=== PATIENT | male | born 1960 | race Caucasian/White ===

== ENCOUNTER 2017-05-29 08:44 | Inpatient (IN) | payer OTHER, MEDICARE ==
[2017-05-29] VITALS (14 sets, daily range): BP systolic 78–150; BP diastolic 46–79; PULSE 58–95; RESP 16–32; TEMP 97.5–98.2; O2SAT 95–100
[~2017-05-29] VITALS: Ht 182.9 cm; Wt 105.4 kg
[2017-05-29] MEDS ORDERED: DIPHTH/TETANUS/ACEL PERTUSSIS (BOOSTER) 0.5 ML VIAL/PFS IM ONE (08:54)
[2017-05-29] MEDS ORDERED: HYDROmorphone HCL PF 1 MG/ML VIAL ONE (08:56)
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
[2017-05-29 09:24] LABS: BASOPHIL % 0.2 % (0.0-2.0); EOSINOPHIL # 0.1 TH/MM3 (0-0.4); EOSINOPHIL % 1.7 % (0.0-4.0); HEMATOCRIT 36.3 % (39.0-51.0); HEMOGLOBIN 12.2 GM/DL (13.0-17.0); LYMPH % 32.8 % (9.0-44.0); LYMPHOCYTE # 2.9 TH/MM3 (1.0-4.8); MEAN CELL VOLUME 84.8 FL (80.0-100.0); MEAN CORPUSCULAR HEMOGLOBIN 28.6 PG (27.0-34.0); MEAN CORPUSCULAR HGB CONC 33.7 % (32.0-36.0); MEAN PLATELET VOLUME 10.1 FL (7.0-11.0); MONOCYTE # 0.9 TH/MM3 (0-0.9); NEUT % 55.3 % (16.0-70.0); PLATELET COUNT 219 TH/MM3 (150-450); RED BLOOD COUNT 4.28 MIL/MM3 (4.50-5.90); RED CELL DISTRIBUTION WIDTH 15.4 % (11.6-17.2)
[2017-05-29 09:35] LABS: INTERNATIONAL NORMALIZED RATIO 1.2 RATIO; PROTHROMBIN TIME - PATIENT 12.3 SEC (9.8-11.6)
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
[2017-05-29] MEDS ORDERED: IOHEXOL 350 MG/ML 10 ML VIAL (for RAD DIAG) IVCONTRAST ONE (09:42)
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
[2017-05-29] MEDS ORDERED: HYDROmorphone HCL PF 2 MG/ML VIAL IV PUSH ONE (09:45)
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
[2017-05-29] MEDS ORDERED: CHLORHEXIDINE GLUCONATE 2 % 1 PACK (2 CLOTHS) TOP PRN (11:15)
[2017-05-29] MEDS ORDERED: MAGNESIUM HYDROXIDE SUSP 30 ML CUP PO PRN (11:15)
[2017-05-29] MEDS ORDERED: MISCELLANEOUS NURSING INFORMATION XX SCH (11:15)
[2017-05-29] MEDS: DOCUSATE SODIUM 100 MG CAP PO SCH ×2 (11:15→21:00)
[2017-05-29] MEDS ORDERED: ONDANSETRON HCL 4 MG/2 ML VIAL IV PUSH PRN (11:15)
[2017-05-29] MEDS ORDERED: ENALAPRILAT 1.25 MG/ML VIAL IV PUSH PRN (11:15)
[2017-05-29 11:18] LABS: BICARBONATE 26.1 MEQ/L (21.0-32.0); CALCIUM 8.6 MG/DL (8.5-10.1); CREATININE 1.28 MG/DL (0.60-1.30)
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
[2017-05-29] MEDS ORDERED: HYDROmorphone HCL 4 MG TAB PO PRN (11:45)
[2017-05-29] MEDS: THIAMINE HCL 100 MG TAB PO SCH (11:45)
[2017-05-29] MEDS: FOLIC ACID 1 MG TAB PO SCH (11:45)
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
[2017-05-29] MEDS: oxyCODONE HCL 40 MG CONTROLLED RELEASE TAB PO SCH ×2 (12:00→21:00)
[2017-05-29] MEDS ORDERED: KETOROLAC TROMETHAMINE 30 MG/ML (IVP) VIAL IVP PRN (12:15)
[2017-05-29] MEDS: HYDROmorphone HCL 2 MG TAB PO PRN ×3 (12:54→20:49)
[2017-05-29] MEDS ORDERED: ENOXAPARIN SODIUM 30 MG/0.3 ML SYRINGE SQ SCH (13:00)
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
[2017-05-29] MEDS: LIDOCAINE HCL 5% PATCH T-DERMAL SCH (14:22)
[2017-05-29] MEDS ORDERED: DEXMEDETOMIDINE INJ 200 MCG in SODIUM CHLORIDE 0.9% INJ 50 ML IV PRN (14:30)
[2017-05-29] MEDS ORDERED: PROCHLORPERAZINE 25 MG SUPP RECTAL PRN (14:45)
[2017-05-29] MEDS ORDERED: DEXMEDETOMIDINE INJ 1,000 MCG in SODIUM CHLOR 0.9% 250 ML INJ 240 ML IV PRN (15:00)
[2017-05-29] MEDS ORDERED: SODIUM CHLOR 0.9% 1000 ML INJ 1,000 ML IV STA (15:39)
[2017-05-29] MEDS: SODIUM CHLOR 0.9% 1000 ML INJ 1,000 ML IV SCH (16:00)
[2017-05-29] MEDS: PANTOPRAZOLE SODIUM 40 MG VIAL IV PUSH SCH (17:33)
[2017-05-29] MEDS ORDERED: SODIUM CHLOR 0.9% 1000 ML INJ 1,000 ML IV SCH (17:45)
[2017-05-29 19:04] LABS: HEMATOCRIT 27.5 % (39.0-51.0); HEMOGLOBIN 9.3 GM/DL (13.0-17.0)
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
[2017-05-29] MEDS: GABAPENTIN 300 MG CAP PO SCH (20:00)
[2017-05-29] MEDS: KETOROLAC TROMETHAMINE 30 MG/ML (IVP) VIAL IVP SCH (20:27)
[2017-05-29] MEDS: ACETAMINOPHEN 325 MG TAB PO SCH (20:28)
[2017-05-29 22:07] LABS: HEMATOCRIT 25.1 % (39.0-51.0); HEMOGLOBIN 8.8 GM/DL (13.0-17.0)
[2017-05-29] MEDS ORDERED: SODIUM CHLOR 0.9% 250 ML INJ 250 ML IV ONE (23:15)
[2017-05-29] MEDS ORDERED: SODIUM CHLOR 0.9% 1000 ML INJ 1,000 ML IV ONE (23:15)
[2017-05-29] MEDS ORDERED: PHENYLEPHRINE HCL 10 MG/ML VIAL ONE ×2 (23:22→23:24)
[2017-05-29] MEDS ORDERED: TERBUTALINE INJ 1 MG/ML AMP SQ PRN (23:30)
[2017-05-29] MEDS ORDERED: PHENYLEPHRINE INJ 40 MG in DEXTROSE 5% IN WATE 500 ML INJ 496 ML IV PRN ×2 (23:30)
--- NOTE | 2017-05-29 23:33 | RADRPT ---
EXAM DATE/TIME: 05/29/2017 23:22 [facility] COMPARISON: CHEST SINGLE AP, May 29, 2017, 8:46. INDICATIONS : Shortness of breath MEDICAL HISTORY : None. SURGICAL HISTORY : None. ENCOUNTER: Initial ACUITY: 1 day PAIN SCORE: 7/10 LOCATION: Left chest FINDINGS: A single view of the chest demonstrates the lungs to be symmetrically aerated without evidence of mas s, infiltrate or effusion. The cardiomediastinal contours are unremarkable. Osseous structures are intact. There is overlap of the ribs without clear identification of her fractures. CONCLUSION: No acute disease. Javier Ray Jr., MD on May 29, 2017 at 23:30 Board Certified Radiologist. This report was verified electronically.
[2017-05-30] VITALS (14 sets, daily range): BP systolic 84–158; BP diastolic 50–69; PULSE 56–76; RESP 11–22; TEMP 97.6–98.7; O2SAT 92–100
[2017-05-30] MEDS: SODIUM CHLOR 0.9% 1000 ML INJ 1,000 ML IV SCH (01:45)
[2017-05-30] MEDS: ACETAMINOPHEN 325 MG TAB PO SCH ×4 (02:00→20:13)
[2017-05-30] MEDS: KETOROLAC TROMETHAMINE 30 MG/ML (IVP) VIAL IVP SCH ×4 (02:00→20:14)
[2017-05-30] MEDS ORDERED: IOHEXOL 350 MG/ML 10 ML VIAL (for RAD DIAG) IVCONTRAST ONE (02:04)
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
[2017-05-30] MEDS: HYDROmorphone HCL 2 MG TAB PO PRN ×6 (03:45→21:15)
[2017-05-30] MEDS ORDERED: CHLORHEXIDINE GLUCONATE 2 % 1 PACK (2 CLOTHS) TOP SCH (04:00)
[2017-05-30 04:32] LABS: AUTOMATED NEUTROPHIL # 6.6 TH/MM3 (1.8-7.7); BASOPHIL % 0.3 % (0.0-2.0); EOSINOPHIL # 0.2 TH/MM3 (0-0.4); EOSINOPHIL % 1.7 % (0.0-4.0); HEMATOCRIT 28.6 % (39.0-51.0); HEMOGLOBIN 9.5 GM/DL (13.0-17.0); LYMPH % 19.3 % (9.0-44.0); MEAN CELL VOLUME 85.9 FL (80.0-100.0); MEAN CORPUSCULAR HEMOGLOBIN 28.5 PG (27.0-34.0); MEAN CORPUSCULAR HGB CONC 33.2 % (32.0-36.0); MEAN PLATELET VOLUME 9.8 FL (7.0-11.0); MONO % 14.2 % (0.0-8.0); MONOCYTE # 1.5 TH/MM3 (0-0.9); NEUT % 64.5 % (16.0-70.0); PLATELET COUNT 160 TH/MM3 (150-450); RED BLOOD COUNT 3.33 MIL/MM3 (4.50-5.90); RED CELL DISTRIBUTION WIDTH 16.5 % (11.6-17.2); WHITE BLOOD COUNT 10.3 TH/MM3 (4.0-11.0)
[2017-05-30 04:46] LABS: BICARBONATE 23.9 MEQ/L (21.0-32.0); CALCIUM 7.3 MG/DL (8.5-10.1); CREATININE 1.52 MG/DL (0.60-1.30)
[2017-05-30 05:07] LABS: CALCIUM-PROTEIN CORRECTED 7.8 MG/DL (8.5-10.1); TOTAL PROTEIN 6.2 GM/DL (6.4-8.2)
[2017-05-30] MEDS: PANTOPRAZOLE SODIUM 40 MG VIAL IV PUSH SCH ×2 (06:00→17:03)
--- NOTE | 2017-05-30 06:06 | RADRPT ---
EXAM DATE/TIME: 05/30/2017 05:21 [place] COMPARISON: CHEST SINGLE AP, May 29, 2017, 23:22. INDICATIONS : Shortness of breath, left-sided chest pain MEDICAL HISTORY : Endocarditis SURGICAL HISTORY : None. ENCOUNTER: Subsequent ACUITY: 1 day PAIN SCORE: 10/10 LOCATION: Left chest FINDINGS: A single view of the chest demonstrates the lungs to be symmetrically aerated without evidence of mas s, infiltrate or effusion. Mild cardiomegaly. No pulmonary vascular engorgement. Osseous structures a re intact. CONCLUSION: Mild cardiomegaly. Javier Ray Jr., MD on May 30, 2017 at 6:04 Board Certified Radiologist. This report was verified electronically.
[2017-05-30] MEDS ORDERED: BISACODYL 10 MG SUPP RECTAL PRN ×2 (06:45→07:00)
[2017-05-30] MEDS: RESP: ALBUTEROL 2.5 MG/IPRATROPIUM 0.5 MG NEB (SCH) NEB ×4 (07:56→20:08)
[2017-05-30] MEDS ORDERED: CHLORHEXIDINE GLUCONATE 2 % 1 PACK (2 CLOTHS)(extra cloths) TOPICAL PRN (08:15)
[2017-05-30] MEDS ORDERED: LACTATED RINGER'S 1000 ML INJ 1,000 ML IV ONE (08:30)
[2017-05-30] MEDS: FOLIC ACID 1 MG TAB PO SCH (08:48)
[2017-05-30] MEDS: oxyCODONE HCL 40 MG CONTROLLED RELEASE TAB PO SCH ×2 (08:48→20:20)
[2017-05-30] MEDS: GABAPENTIN 300 MG CAP PO SCH ×3 (08:48→17:03)
[2017-05-30] MEDS: DOCUSATE SODIUM 50 MG/SENNA 8.6 MG TAB PO SCH ×2 (08:48→20:14)
[2017-05-30] MEDS: THIAMINE HCL 100 MG TAB PO SCH (08:48)
[2017-05-30] MEDS: LACTULOSE SYRUP 20 GM/30 ML CUP PO SCH (08:51)
[2017-05-30] MEDS: MUPIROCIN 2% OINT 1 APPLIC/GM SYR NASAL SCH ×2 (08:51→20:13)
[2017-05-30] MEDS: LIDOCAINE HCL 5% PATCH T-DERMAL SCH (08:52)
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
[2017-05-30] MEDS: HYDROmorphone HCL PF 2 MG/ML VIAL IV PUSH PRN (10:35)
[2017-05-30] MEDS: ENOXAPARIN SODIUM 30 MG/0.3 ML SYRINGE SQ SCH ×2 (10:50→21:15)
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
--- NOTE | 2017-05-30 19:07 | ECHRPT ---
Indication: Pericardial effussion CONCLUSIONS LV function is normal. Wall thickness is normal. Normal left ventricular size. No regional wall motion abnormalities are present. The left atrial size is moderately dilated. Aortic valve sclerosis is present. Mild aortic valve regurgitation. The pulmonary valve is not well visualized. The inferior vena cava is dilated. There is less than 50% respiratory change in dimension of the inferior vena cava (abnormal). There is no pericardial effusion. BP: 114 / 59 HR: 60 Rhythm: Sinus Technical Quality:Fair FINDINGS LEFT VENTRICLE The left ventricular systolic function is normal with an estimated ejection fraction in the range of 60-65%. Wall thickness is normal. Normal left ventricular size. No regional wall motion abnormalities are present. RIGHT VENTRICLE Normal right ventricular size and systolic function. LEFT ATRIUM The left atrial size is moderately dilated. RIGHT ATRIUM The right atrial size is normal. ATRIAL SEPTUM Normal atrial septal thickness without atrial level shunting by limited color doppler interrogation. AORTA The aortic root and proximal ascending aorta are normal in size on limited imaging. MITRAL VALVE Structurally normal mitral valve. No mitral valve stenosis or regurgitation. AORTIC VALVE Trileaflet aortic valve. Aortic valve sclerosis is present. Mild aortic valve regurgitation. TRICUSPID VALVE Structurally normal tricuspid valve. No tricuspid valve stenosis or regurgitation. PULMONARY VALVE The pulmonary valve is not well visualized. VESSELS The inferior vena cava is dilated. There is less than 50% respiratory change in dimension of the inferior vena cava (abnormal). PERICARDIUM There is no pericardial effusion. Umesh Gilmore MD (Electronically Signed) Final Date:30 May 2017 19:06
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
[2017-05-31] VITALS (10 sets, daily range): BP systolic 105–149; BP diastolic 52–65; PULSE 61–86; RESP 12–22; TEMP 97.8–98.2; O2SAT 93–97
[2017-05-31] MEDS: HYDROmorphone HCL 2 MG TAB PO PRN ×6 (01:49→22:35)
[2017-05-31] MEDS: KETOROLAC TROMETHAMINE 30 MG/ML (IVP) VIAL IVP SCH ×4 (01:49→20:00)
[2017-05-31] MEDS: ACETAMINOPHEN 325 MG TAB PO SCH ×4 (01:50→20:00)
[2017-05-31] MEDS: CHLORHEXIDINE GLUCONATE 2 % 1 PACK (2 CLOTHS)(taper/protocol) TOPICAL SCH (04:00)
[2017-05-31 04:48] LABS: BICARBONATE 23.3 MEQ/L (21.0-32.0); CREATININE 1.47 MG/DL (0.60-1.30)
[2017-05-31 05:00] LABS: CALCIUM-PROTEIN CORRECTED 7.5 MG/DL (8.5-10.1); TOTAL PROTEIN 6.1 GM/DL (6.4-8.2)
[2017-05-31] MEDS: PANTOPRAZOLE SODIUM 40 MG VIAL IV PUSH SCH ×2 (05:01→18:00)
[2017-05-31] MEDS: RESP: ALBUTEROL 2.5 MG/IPRATROPIUM 0.5 MG NEB (SCH) NEB ×4 (08:00→22:31)
[2017-05-31] MEDS: HYDROmorphone HCL PF 2 MG/ML VIAL IV PUSH PRN ×2 (08:30→13:20)
[2017-05-31] MEDS: oxyCODONE HCL 40 MG CONTROLLED RELEASE TAB PO SCH ×2 (09:00→20:17)
[2017-05-31] MEDS: MUPIROCIN 2% OINT 1 APPLIC/GM SYR NASAL SCH ×2 (09:00→20:17)
[2017-05-31] MEDS: DOCUSATE SODIUM 50 MG/SENNA 8.6 MG TAB PO SCH ×2 (09:00→20:17)
[2017-05-31] MEDS: LACTULOSE SYRUP 20 GM/30 ML CUP PO SCH (09:00)
[2017-05-31] MEDS: GABAPENTIN 300 MG CAP PO SCH ×3 (09:00→18:00)
[2017-05-31] MEDS: FOLIC ACID 1 MG TAB PO SCH (09:00)
[2017-05-31] MEDS: THIAMINE HCL 100 MG TAB PO SCH (09:00)
[2017-05-31] MEDS: LIDOCAINE HCL 5% PATCH T-DERMAL SCH (09:00)
[2017-05-31] MEDS: ENOXAPARIN SODIUM 30 MG/0.3 ML SYRINGE SQ SCH ×2 (09:26→22:33)
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
[2017-05-31 12:33] LABS: AUTOMATED NEUTROPHIL # 3.2 TH/MM3 (1.8-7.7); BASOPHIL % 0.4 % (0.0-2.0); EOSINOPHIL # 0.2 TH/MM3 (0-0.4); HEMATOCRIT 24.6 % (39.0-51.0); HEMOGLOBIN 8.2 GM/DL (13.0-17.0); LYMPH % 13.4 % (9.0-44.0); LYMPHOCYTE # 0.6 TH/MM3 (1.0-4.8); MEAN CELL VOLUME 86.5 FL (80.0-100.0); MEAN CORPUSCULAR HEMOGLOBIN 28.9 PG (27.0-34.0); MEAN CORPUSCULAR HGB CONC 33.4 % (32.0-36.0); MEAN PLATELET VOLUME 9.9 FL (7.0-11.0); MONO % 12.7 % (0.0-8.0); MONOCYTE # 0.6 TH/MM3 (0-0.9); NEUT % 69.5 % (16.0-70.0); PLATELET COUNT 97 TH/MM3 (150-450); RED BLOOD COUNT 2.84 MIL/MM3 (4.50-5.90); RED CELL DISTRIBUTION WIDTH 16.5 % (11.6-17.2); WHITE BLOOD COUNT 4.6 TH/MM3 (4.0-11.0)
[2017-05-31 13:21] LABS: OVALOCYTES 1+ (NORMAL)
[2017-06-01] VITALS (8 sets, daily range): BP systolic 91–148; BP diastolic 53–86; PULSE 79–107; RESP 18–20; TEMP 97.6–98.8; O2SAT 94–97
[2017-06-01] MEDS: KETOROLAC TROMETHAMINE 30 MG/ML (IVP) VIAL IVP SCH ×4 (03:17→21:11)
[2017-06-01] MEDS: ACETAMINOPHEN 325 MG TAB PO SCH ×4 (03:17→21:11)
[2017-06-01] MEDS: HYDROmorphone HCL 2 MG TAB PO PRN ×6 (03:18→21:13)
[2017-06-01] MEDS: CHLORHEXIDINE GLUCONATE 2 % 1 PACK (2 CLOTHS)(taper/protocol) TOPICAL SCH (04:00)
[2017-06-01] MEDS: PANTOPRAZOLE SODIUM 40 MG VIAL IV PUSH SCH ×2 (06:26→18:00)
[2017-06-01] MEDS: RESP: ALBUTEROL 2.5 MG/IPRATROPIUM 0.5 MG NEB (SCH) NEB ×4 (08:22→21:19)
[2017-06-01] MEDS: MUPIROCIN 2% OINT 1 APPLIC/GM SYR NASAL SCH (09:00)
[2017-06-01] MEDS: LACTULOSE SYRUP 20 GM/30 ML CUP PO SCH (09:44)
[2017-06-01] MEDS: DOCUSATE SODIUM 50 MG/SENNA 8.6 MG TAB PO SCH ×2 (09:46→21:11)
[2017-06-01] MEDS: FOLIC ACID 1 MG TAB PO SCH (09:46)
[2017-06-01] MEDS: GABAPENTIN 300 MG CAP PO SCH (09:46)
[2017-06-01] MEDS: THIAMINE HCL 100 MG TAB PO SCH (09:46)
[2017-06-01] MEDS: oxyCODONE HCL 40 MG CONTROLLED RELEASE TAB PO SCH ×2 (09:59→21:12)
[2017-06-01] MEDS: LIDOCAINE HCL 5% PATCH T-DERMAL SCH (10:09)
[2017-06-01] MEDS: ENOXAPARIN SODIUM 30 MG/0.3 ML SYRINGE SQ SCH ×2 (10:10→21:12)
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
[2017-06-01] MEDS: HYDROmorphone HCL PF 2 MG/ML VIAL IV PUSH PRN ×2 (12:27→16:13)
[2017-06-01] MEDS: PREGABALIN 75 MG CAP PO SCH ×2 (16:20→21:11)
[2017-06-02] VITALS (9 sets, daily range): BP systolic 96–136; BP diastolic 53–78; PULSE 71–108; RESP 17–20; TEMP 97.6–99; O2SAT 91–95
[2017-06-02] MEDS: ACETAMINOPHEN 325 MG TAB PO SCH ×4 (01:42→20:00)
[2017-06-02] MEDS: HYDROmorphone HCL 2 MG TAB PO PRN ×4 (01:43→13:21)
[2017-06-02] MEDS: PANTOPRAZOLE SODIUM 40 MG VIAL IV PUSH SCH ×2 (04:52→17:39)
[2017-06-02] MEDS: RESP: ALBUTEROL 2.5 MG/IPRATROPIUM 0.5 MG NEB (SCH) NEB ×6 (07:47→20:02)
[2017-06-02] MEDS: oxyCODONE HCL 40 MG CONTROLLED RELEASE TAB PO SCH ×2 (09:02→21:00)
[2017-06-02] MEDS: LACTULOSE SYRUP 20 GM/30 ML CUP PO SCH (09:08)
[2017-06-02] MEDS: ENOXAPARIN SODIUM 30 MG/0.3 ML SYRINGE SQ SCH ×2 (09:09→22:00)
[2017-06-02] MEDS: PREGABALIN 75 MG CAP PO SCH (09:09)
[2017-06-02] MEDS: DOCUSATE SODIUM 50 MG/SENNA 8.6 MG TAB PO SCH ×2 (09:10→21:00)
[2017-06-02] MEDS: LIDOCAINE HCL 5% PATCH T-DERMAL SCH (09:13)
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
[2017-06-02] MEDS ORDERED: ONDANSETRON HCL 4 MG/2 ML VIAL IV ONE (12:00)
[2017-06-02] MEDS ORDERED: PROPOFOL 200 MG/20 ML AMP IV ONE (12:00)
[2017-06-02] MEDS ORDERED: PHENYLEPH/NS 1000 MCG/10 ML SYR IV ONE (12:00)
[2017-06-02] MEDS ORDERED: SODIUM CHLORIDE 0.9% 20 ML VIAL IV ONE (12:00)
[2017-06-02] MEDS: ceFAZolin 2 GM PREMIX 50 ML IV SCH ×2 (12:00→19:47)
[2017-06-02] MEDS: HYDROmorphone HCL PF 2 MG/ML VIAL IV PUSH PRN (12:01)
[2017-06-02] MEDS: LORazepam 1 MG TAB PO PRN (12:04)
[2017-06-02 14:18] LABS: AUTOMATED NEUTROPHIL # 10.2 TH/MM3 (1.8-7.7); BASOPHIL % 0.2 % (0.0-2.0); EOSINOPHIL # 0.1 TH/MM3 (0-0.4); HEMATOCRIT 27.8 % (39.0-51.0); HEMOGLOBIN 9.3 GM/DL (13.0-17.0); LYMPH % 5.3 % (9.0-44.0); LYMPHOCYTE # 0.6 TH/MM3 (1.0-4.8); MEAN CELL VOLUME 86.3 FL (80.0-100.0); MEAN CORPUSCULAR HEMOGLOBIN 28.8 PG (27.0-34.0); MEAN CORPUSCULAR HGB CONC 33.3 % (32.0-36.0); MEAN PLATELET VOLUME 10.3 FL (7.0-11.0); MONO % 5.5 % (0.0-8.0); MONOCYTE # 0.6 TH/MM3 (0-0.9); PLATELET COUNT 220 TH/MM3 (150-450); RED BLOOD COUNT 3.22 MIL/MM3 (4.50-5.90); RED CELL DISTRIBUTION WIDTH 16.3 % (11.6-17.2); WHITE BLOOD COUNT 11.6 TH/MM3 (4.0-11.0)
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
--- NOTE | 2017-06-02 14:52 | RADRPT ---
EXAM DATE/TIME: 06/02/2017 14:15 [facility] COMPARISON: No previous studies available for comparison. INDICATIONS : Pain and swelling right wrist MEDICAL HISTORY : Endocarditis, right ulna fracture SURGICAL HISTORY : Hardware placement right ulna ENCOUNTER: Initial ACUITY: 4 - 6 days PAIN SCORE: 10/10 LOCATION: Right Wrist FINDINGS: There is previous internal fixation of a fracture of the ulna with heterotopic desiccation adjacent t o this. Fusion of the carpal bones is present. 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 There is no evidence of acute fracture. Bony mineralization is normal. CONCLUSION: 1. There is no evidence of acute fracture. Murali Jones MD on June 02, 2017 at 14:48 Board Certified Radiologist. This report was verified electronically.
[2017-06-02 15:01] LABS: OVALOCYTES 1+ (NORMAL)
[2017-06-02] MEDS ORDERED: KETAMINE HCL 500 MG/5 ML VIAL ONE (17:37)
[2017-06-02] MEDS ORDERED: LIDOCAINE HCL 2% 50 ML VIAL ONE (17:43)
[2017-06-02] MEDS ORDERED: NEOMYCIN/POLYMYXIN 1 ML G.U. IRRIGANT ONE (17:45)
[2017-06-02] MEDS ORDERED: DO NOT ADM ANY ANTICOAGULANT DRUGS PRN (18:40)
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
[2017-06-02] MEDS ORDERED: MIDAZOLAM HCL 2 MG/2 ML VIAL ONE ×2 (18:46)
[2017-06-02] MEDS ORDERED: *RESP: ALBUTEROL 2.5 MG/3 ML NEB (PRN) PERIprocedural Use ONLY NEB ONE (18:55)
[2017-06-02] MEDS ORDERED: FUROSEMIDE 20 MG/2 ML VIAL ONE (19:17)
[2017-06-02] MEDS ORDERED: FUROSEMIDE 20 MG/2 ML VIAL IV ONE (19:17)
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
[2017-06-02] MEDS: PREGABALIN 100 MG CAP PO SCH (21:00)
[2017-06-03] VITALS (8 sets, daily range): BP systolic 91–128; BP diastolic 53–62; PULSE 73–108; RESP 16–20; TEMP 97.9–100; O2SAT 94–96
[2017-06-03] MEDS: ACETAMINOPHEN 325 MG TAB PO SCH ×3 (02:00→14:29)
[2017-06-03 04:50] LABS: HEMOGLOBIN 8.4 GM/DL (13.0-17.0); MEAN CELL VOLUME 84.5 FL (80.0-100.0); MEAN CORPUSCULAR HEMOGLOBIN 28.5 PG (27.0-34.0); MEAN CORPUSCULAR HGB CONC 33.7 % (32.0-36.0); MEAN PLATELET VOLUME 10.3 FL (7.0-11.0); PLATELET COUNT 180 TH/MM3 (150-450); RED BLOOD COUNT 2.96 MIL/MM3 (4.50-5.90); RED CELL DISTRIBUTION WIDTH 16.3 % (11.6-17.2); WHITE BLOOD COUNT 10.4 TH/MM3 (4.0-11.0)
[2017-06-03] MEDS: ceFAZolin 2 GM PREMIX 50 ML IV SCH (05:06)
[2017-06-03] MEDS: PANTOPRAZOLE SODIUM 40 MG VIAL IV PUSH SCH ×2 (05:06→17:18)
[2017-06-03] MEDS: HYDROmorphone HCL 2 MG TAB PO PRN ×4 (05:14→17:15)
[2017-06-03 05:20] LABS: BICARBONATE 21.6 MEQ/L (21.0-32.0); CREATININE 1.66 MG/DL (0.60-1.30)
[2017-06-03] MEDS: HYDROmorphone HCL PF 2 MG/ML VIAL IV PUSH PRN ×3 (06:32→16:05)
--- NOTE | 2017-06-03 06:47 | RADRPT ---
EXAM DATE/TIME: 06/03/2017 05:43 [facility] COMPARISON: CHEST SINGLE AP, May 30, 2017, 5:21. INDICATIONS : Severe pain left chest and back, follow up post trauma MEDICAL HISTORY : rib fractures left side, endocarditis SURGICAL HISTORY : None. ENCOUNTER: Subsequent ACUITY: 4 - 6 days PAIN SCORE: 10/10 LOCATION: Left chest FINDINGS: The cardiac silhouette is enlarged in transverse diameter. Multiple left rib fractures are present. T here is no evidence of pneumothorax. There is new right upper lobe opacity which may reflect edema o r pneumonia. There is prominence of the central pulmonary vasculature with indistinct vascular margin s compatible with vascular congestion but no evidence of overt failure. CONCLUSION: 1. Cardiomegaly and findings of vascular congestion without overt failure. Right upper lobe edema wilmar sharmaine pneumonia 2. There is no evidence of pneumothorax. Murali Jones MD on June 03, 2017 at 6:44 Board Certified Radiologist. This report was verified electronically.
[2017-06-03 06:53] LABS: BANDS 7 % (0-6); LYMPHOCYTES 5 % (9-44); METAMYELOCYTES 1 % (0-1); MONOCYTES 7 % (0-8); NEUTROPHIL # MANUAL DIFF 9.2 TH/MM3 (1.8-7.7); POLYS (SEG NEUTROPHILS) 80 % (16-70)
[2017-06-03 06:54] LABS: OVALOCYTES 1+ (NORMAL)
[2017-06-03] MEDS: PREGABALIN 100 MG CAP PO SCH ×2 (08:46→21:21)
[2017-06-03] MEDS: DOCUSATE SODIUM 50 MG/SENNA 8.6 MG TAB PO SCH ×2 (08:46→21:21)
[2017-06-03] MEDS: oxyCODONE HCL 40 MG CONTROLLED RELEASE TAB PO SCH ×2 (08:47→21:21)
[2017-06-03] MEDS: LACTULOSE SYRUP 20 GM/30 ML CUP PO SCH (08:48)
[2017-06-03] MEDS: LIDOCAINE HCL 5% PATCH T-DERMAL SCH (08:49)
[2017-06-03] MEDS: ENOXAPARIN SODIUM 30 MG/0.3 ML SYRINGE SQ SCH ×2 (09:59→21:22)
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
[2017-06-03] MEDS ORDERED: Vancomycin Consult Pharmacy 1 EA OTHER SCH (12:15)
[2017-06-03] MEDS ORDERED: LACTATED RINGER'S 1000 ML INJ 1,000 ML IV ONE (12:15)
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
[2017-06-03] MEDS ORDERED: VANCOMYCIN INJ 1,000 MG in SODIUM CHLOR 0.9% 250 ML INJ 250 ML IV SCH (13:00)
[2017-06-03] MEDS: PIPERACIL-TAZO 3.375 GM PREMIX 50 ML IV SCH ×2 (14:31→21:22)
[2017-06-03] MEDS ORDERED: VANCOMYCIN INJ 1,750 MG in SODIUM CHLORID 0.9% 500 ML INJ 500 ML IV ONE (15:00)
[2017-06-03] MEDS: LACTATED RINGER'S 1000 ML INJ 1,000 ML IV SCH ×2 (16:08→21:21)
[2017-06-04] VITALS: BP 135/81; PULSE 100; RESP 20; TEMP 97; O2SAT 95
[2017-06-04] MEDS: HYDROmorphone HCL 2 MG TAB PO PRN ×4 (02:27→22:04)
[2017-06-04] MEDS: LACTATED RINGER'S 1000 ML INJ 1,000 ML IV SCH ×2 (04:15→12:51)
[2017-06-04 05:05] VITALS: BP 125/64; PULSE 85; RESP 20; O2SAT 96
[2017-06-04] MEDS: PANTOPRAZOLE SODIUM 40 MG VIAL IV PUSH SCH ×2 (05:09→17:06)
[2017-06-04] MEDS: PIPERACIL-TAZO 3.375 GM PREMIX 50 ML IV SCH ×3 (05:10→22:04)
[2017-06-04 07:11] LABS: ALBUMIN 1.9 GM/DL (3.4-5.0); ALT (GPT) 26 U/L (12-78); AST (GOT) 66 U/L (15-37); BICARBONATE 22.2 MEQ/L (21.0-32.0); BLOOD UREA NITROGEN 29 MG/DL (7-18); CALCIUM 7.8 MG/DL (8.5-10.1); CHLORIDE 103 MEQ/L (98-107); CREATININE 1.22 MG/DL (0.60-1.30); GLOMERULAR FILTRATION RATE 61 ML/MIN (>89); GLUCOSE,RANDOM 89 MG/DL (74-106); SODIUM (NA) 132 MEQ/L (136-145)
[2017-06-04 07:14] LABS: ALKALINE PHOSPHATASE 106 U/L (45-117); RANDOM VANCOMYCIN 3.5 COMMENT; TOTAL BILIRUBIN ADULT 1.3 MG/DL (0.2-1.0)
[2017-06-04 07:16] LABS: AUTOMATED NEUTROPHIL # 8.1 TH/MM3 (1.8-7.7); BASOPHIL % 0.1 % (0.0-2.0); EOSINOPHIL % 0.4 % (0.0-4.0); HEMATOCRIT 24.3 % (39.0-51.0); HEMOGLOBIN 8.4 GM/DL (13.0-17.0); LYMPH % 7.9 % (9.0-44.0); LYMPHOCYTE # 0.8 TH/MM3 (1.0-4.8); MEAN CELL VOLUME 85.4 FL (80.0-100.0); MEAN CORPUSCULAR HEMOGLOBIN 29.5 PG (27.0-34.0); MEAN CORPUSCULAR HGB CONC 34.5 % (32.0-36.0); MEAN PLATELET VOLUME 10.2 FL (7.0-11.0); MONO % 10.1 % (0.0-8.0); NEUT % 81.5 % (16.0-70.0); PLATELET COUNT 209 TH/MM3 (150-450); RED BLOOD COUNT 2.84 MIL/MM3 (4.50-5.90); RED CELL DISTRIBUTION WIDTH 16.7 % (11.6-17.2); WHITE BLOOD COUNT 9.9 TH/MM3 (4.0-11.0)
[2017-06-04 08:00] VITALS: BP 123/65; PULSE 80; RESP 19; TEMP 99; O2SAT 94
[2017-06-04] MEDS: DOCUSATE SODIUM 50 MG/SENNA 8.6 MG TAB PO SCH ×2 (09:00→20:24)
[2017-06-04] MEDS: oxyCODONE HCL 40 MG CONTROLLED RELEASE TAB PO SCH ×2 (09:00→20:21)
[2017-06-04] MEDS: LACTULOSE SYRUP 20 GM/30 ML CUP PO SCH (09:00)
[2017-06-04] MEDS: LIDOCAINE HCL 5% PATCH T-DERMAL SCH (09:00)
[2017-06-04] MEDS: PREGABALIN 100 MG CAP PO SCH ×2 (09:00→20:20)
[2017-06-04 09:25] VITALS: O2SAT 96
[2017-06-04] MEDS: ENOXAPARIN SODIUM 30 MG/0.3 ML SYRINGE SQ SCH ×2 (10:00→20:22)
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
[2017-06-04] MEDS ORDERED: FUROSEMIDE 20 MG/2 ML VIAL IV PUSH ONE (11:45)
[2017-06-04] MEDS: VANCOMYCIN INJ 1,500 MG in SODIUM CHLORID 0.9% 500 ML INJ 500 ML IV SCH (13:17)
[2017-06-04 13:18] VITALS: BP 125/70; PULSE 81; RESP 18; TEMP 98.9; O2SAT 97
[2017-06-04 16:00] VITALS: BP 101/55; PULSE 80; RESP 18; TEMP 99.4; O2SAT 96
[2017-06-05] VITALS: BP 135/70; PULSE 54; RESP 20; TEMP 97; O2SAT 95
[2017-06-05] MEDS: VANCOMYCIN INJ 1,500 MG in SODIUM CHLORID 0.9% 500 ML INJ 500 ML IV SCH ×2 (01:46→13:23)
[2017-06-05] MEDS: HYDROmorphone HCL 2 MG TAB PO PRN ×8 (01:55→21:46)
[2017-06-05 04:00] VITALS: BP 131/66; PULSE 79; RESP 20; TEMP 97.6; O2SAT 95
[2017-06-05 04:27] LABS: AUTOMATED NEUTROPHIL # 6.7 TH/MM3 (1.8-7.7); BASOPHIL % 0.3 % (0.0-2.0); EOSINOPHIL # 0.2 TH/MM3 (0-0.4); EOSINOPHIL % 2.1 % (0.0-4.0); HEMATOCRIT 26.7 % (39.0-51.0); HEMOGLOBIN 8.9 GM/DL (13.0-17.0); LYMPH % 12.4 % (9.0-44.0); LYMPHOCYTE # 1.1 TH/MM3 (1.0-4.8); MEAN CELL VOLUME 83.8 FL (80.0-100.0); MEAN CORPUSCULAR HEMOGLOBIN 27.9 PG (27.0-34.0); MEAN CORPUSCULAR HGB CONC 33.3 % (32.0-36.0); MONOCYTE # 0.8 TH/MM3 (0-0.9); NEUT % 76.2 % (16.0-70.0); PLATELET COUNT 262 TH/MM3 (150-450); RED BLOOD COUNT 3.19 MIL/MM3 (4.50-5.90); RED CELL DISTRIBUTION WIDTH 16.4 % (11.6-17.2); WHITE BLOOD COUNT 8.8 TH/MM3 (4.0-11.0)
[2017-06-05 05:02] LABS: ALBUMIN 1.9 GM/DL (3.4-5.0); ALKALINE PHOSPHATASE 124 U/L (45-117); ALT (GPT) 27 U/L (12-78); AST (GOT) 55 U/L (15-37); BICARBONATE 28.6 MEQ/L (21.0-32.0); BLOOD UREA NITROGEN 24 MG/DL (7-18); CHLORIDE 99 MEQ/L (98-107); CREATININE 1.16 MG/DL (0.60-1.30); GLOMERULAR FILTRATION RATE 65 ML/MIN (>89); GLUCOSE,RANDOM 114 MG/DL (74-106); SODIUM (NA) 135 MEQ/L (136-145); TOTAL BILIRUBIN ADULT 1.3 MG/DL (0.2-1.0); TOTAL PROTEIN 6.2 GM/DL (6.4-8.2)
[2017-06-05] MEDS: LACTATED RINGER'S 1000 ML INJ 1,000 ML IV SCH (05:10)
[2017-06-05] MEDS: PIPERACIL-TAZO 3.375 GM PREMIX 50 ML IV SCH ×2 (05:11→15:58)
[2017-06-05] MEDS: PANTOPRAZOLE SODIUM 40 MG VIAL IV PUSH SCH (05:11)
--- NOTE | 2017-06-05 06:01 | RADRPT ---
EXAM DATE/TIME: 06/05/2017 04:57 [facility] COMPARISON: CHEST SINGLE AP, June 03, 2017, 5:43. INDICATIONS : Severe pain left chest and back, follow up post trauma MEDICAL HISTORY : rib fractures left side, endocarditis SURGICAL HISTORY : None. ENCOUNTER: Subsequent ACUITY: 4 - 6 days PAIN SCORE: 10/10 LOCATION: Left chest FINDINGS: The cardiac silhouette is enlarged in transverse diameter. There is prominence of the central pulmona ry vasculature with indistinct vascular margins compatible with vascular congestion but no evidence o f overt failure. There is no evidence of pneumothorax. CONCLUSION: 1. Cardiomegaly and findings of vascular congestion without overt failure. Murali Jones MD on June 05, 2017 at 5:57 Board Certified Radiologist. This report was verified electronically.
[2017-06-05 08:36] VITALS: BP 117/58; PULSE 75; RESP 20; TEMP 98.3; O2SAT 97
[2017-06-05] MEDS: LIDOCAINE HCL 5% PATCH T-DERMAL SCH (10:22)
[2017-06-05] MEDS: PREGABALIN 100 MG CAP PO SCH ×2 (10:24→21:44)
[2017-06-05] MEDS: LACTULOSE SYRUP 20 GM/30 ML CUP PO SCH (10:24)
[2017-06-05] MEDS: DOCUSATE SODIUM 50 MG/SENNA 8.6 MG TAB PO SCH ×2 (10:24→21:00)
[2017-06-05] MEDS: PANTOPRAZOLE SOD 40 MG DELAYED RELEASE TAB PO SCH ×2 (10:24→21:45)
[2017-06-05] MEDS: ENOXAPARIN SODIUM 30 MG/0.3 ML SYRINGE SQ SCH ×2 (10:24→21:45)
[2017-06-05] MEDS: oxyCODONE HCL 40 MG CONTROLLED RELEASE TAB PO SCH ×2 (10:25→21:45)
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
[2017-06-05 12:18] VITALS: BP 93/51; PULSE 71; RESP 20; TEMP 98.6; O2SAT 97
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
[2017-06-05 17:21] VITALS: O2SAT 97
[2017-06-05 20:30] VITALS: BP 147/70; PULSE 80; RESP 22; TEMP 98.8; O2SAT 100
[2017-06-06] VITALS (8 sets, daily range): BP systolic 92–141; BP diastolic 50–70; PULSE 74–88; RESP 18–20; TEMP 97.4–98.5; O2SAT 92–100
[2017-06-06] MEDS: HYDROmorphone HCL 2 MG TAB PO PRN ×7 (00:35→22:43)
[2017-06-06] MEDS: cefTRIAXone INJ 2,000 MG in SODIUM CHLORIDE 0.9% INJ 100 ML IV SCH ×2 (00:35→22:44)
[2017-06-06] MEDS ORDERED: PHARMACY ORDERED LAB ONE (00:45)
[2017-06-06] MEDS: LACTATED RINGER'S 1000 ML INJ 1,000 ML IV SCH ×2 (00:58→14:51)
[2017-06-06] MEDS: VANCOMYCIN INJ 1,500 MG in SODIUM CHLORID 0.9% 500 ML INJ 500 ML IV SCH ×2 (01:57→13:59)
[2017-06-06] MEDS: DOCUSATE SODIUM 50 MG/SENNA 8.6 MG TAB PO SCH ×2 (09:00→22:42)
[2017-06-06] MEDS: PREGABALIN 100 MG CAP PO SCH ×2 (10:21→22:43)
[2017-06-06] MEDS: LACTULOSE SYRUP 20 GM/30 ML CUP PO SCH (10:21)
[2017-06-06] MEDS: PANTOPRAZOLE SOD 40 MG DELAYED RELEASE TAB PO SCH ×2 (10:22→22:44)
[2017-06-06] MEDS: oxyCODONE HCL 40 MG CONTROLLED RELEASE TAB PO SCH ×2 (10:22→22:44)
[2017-06-06] MEDS: LIDOCAINE HCL 5% PATCH T-DERMAL SCH (10:23)
[2017-06-06] MEDS: ENOXAPARIN SODIUM 30 MG/0.3 ML SYRINGE SQ SCH ×2 (10:23→22:44)
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
[2017-06-06] MEDS: RESP: ALBUTEROL 2.5 MG/IPRATROPIUM 0.5 MG NEB (SCH) NEB ×2 (17:29→21:24)
[2017-06-07] VITALS (7 sets, daily range): BP systolic 97–131; BP diastolic 54–63; PULSE 68–82; RESP 18–20; TEMP 97.8–98.5; O2SAT 92–98
[2017-06-07] MEDS: VANCOMYCIN INJ 1,500 MG in SODIUM CHLORID 0.9% 500 ML INJ 500 ML IV SCH ×2 (01:00→13:00)
[2017-06-07] MEDS: RESP: ALBUTEROL 2.5 MG/IPRATROPIUM 0.5 MG NEB (SCH) NEB ×4 (03:07→20:47)
[2017-06-07] MEDS: HYDROmorphone HCL 2 MG TAB PO PRN ×7 (03:13→22:33)
[2017-06-07] MEDS: LACTATED RINGER'S 1000 ML INJ 1,000 ML IV SCH (07:31)
[2017-06-07] MEDS: LACTULOSE SYRUP 20 GM/30 ML CUP PO SCH (09:00)
[2017-06-07] MEDS: DOCUSATE SODIUM 50 MG/SENNA 8.6 MG TAB PO SCH ×2 (09:00→21:19)
[2017-06-07] MEDS: PANTOPRAZOLE SOD 40 MG DELAYED RELEASE TAB PO SCH ×2 (09:37→21:19)
[2017-06-07] MEDS: oxyCODONE HCL 40 MG CONTROLLED RELEASE TAB PO SCH ×2 (09:37→21:26)
[2017-06-07] MEDS: ENOXAPARIN SODIUM 30 MG/0.3 ML SYRINGE SQ SCH ×2 (09:38→21:19)
[2017-06-07] MEDS: PREGABALIN 100 MG CAP PO SCH ×2 (09:38→21:19)
[2017-06-07] MEDS: LIDOCAINE HCL 5% PATCH T-DERMAL SCH (09:38)
[2017-06-07] MEDS ORDERED: MORP1TAB25 PO (12:09)
[2017-06-07] MEDS ORDERED: OXYC30TA PO (12:09)
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
--- NOTE | 2017-06-07 15:11 | HHI.IDPN ---
Subjective Subjective Remarks co R forearm pain, clains it did not get any better no fever Antibiotics CFTX vancomycin Allergies: Coded Allergies: No Known Drug Allergies (Verified Allergy, Unknown, 05/29/17) Objective . Vital Signs Date Time Temp Pulse Resp B/P (MAP) Pulse Ox O2 Delivery O2 Flow Rate FiO2 06/07/17 13:28 06/07/17 09:25 95 Nasal Cannula 3.00 06/07/17 08:33 97.8 76 20 131/61 (84) 92 06/07/17 07:54 Nasal Cannula 4.00 21 Humidified 06/07/17 04:00 98.0 82 20 126/62 (83) 94 06/07/17 00:00 98.2 80 20 107/58 (74) 96 06/06/17 21:24 98.5 78 19 135/63 (87) 95 06/06/17 21:00 Nasal Cannula 4.00 Humidified 06/06/17 17:29 96 Nasal Cannula 3.00 06/06/17 16:09 97.4 76 18 125/62 (83) 96 Imaging Last Impressions Chest X-Ray 06/05/17 0600 Signed Impressions: Service Date/Time: Monday, June 05, 2017 04:57 - CONCLUSION: 1. Cardiomegaly and findings of vascular congestion without overt failure. Murali Jones MD Wrist X-Ray 06/02/17 0000 Signed Impressions: Service Date/Time: Friday, June 02, 2017 14:15 - CONCLUSION: 1. There is no evidence of acute fracture. Murali Jones MD Hand X-Ray 06/02/17 0000 Signed Impressions: Service Date/Time: Friday, June 02, 2017 14:10 - CONCLUSION: 1. There is no evidence of acute fracture. Murali Jones MD Abdomen/Pelvis CT 05/30/17 0000 Signed Impressions: Service Date/Time: May 01:51 - CONCLUSION: 1. No acute abnormality. 2. Splenomegaly. 3. Cardiomegaly. Javier Ray Jr., MD Thoracic Spine CT 05/29/17 0847 Signed Impressions: Service Date/Time: Monday, May 29, 2017 09:12 - CONCLUSION: 1. No acute compression fracture or subluxation of the thoracic spine. 2. Degenerative changes and scoliosis of the thoracic spine. 3. Acute fractures involving the posterior aspect of the left third, fourth, fifth, sixth, seventh, eighth, ninth and 10th ribs are noted. Garrett Tomas MD Maxillofacial CT 05/29/17846 Signed Impressions: Service Date/Time: Monday, May 29, 2017 09:06 - CONCLUSION: 1. Nondisplaced nasal bone fracture Murali Jones MD Head CT 05/29/17846 Signed Impressions: Service Date/Time: Monday, May 29, 2017 09:06 - CONCLUSION: 1. No evidence of acute intracranial pathology. No masses are identified. Murali Jones MD Chest CT 05/29/17846 Signed Impressions: Service Date/Time: Monday, May 29, 2017 09:12 - CONCLUSION: Mild compensated clinically. Trace pericardial effusion No pneumothorax. Old left rib fractures Negative for acute traumatic injury.. Mitchell Sanchez MD FACRADDENDUM: CT of the thoracic spine with thin sections shows acute rib fractures as well as old rib fractures on the left.. Mitchell Sanchez MD FACR Knee X-Ray 05/29/17 Signed Impressions: Service Date/Time: Monday, May 29, 2017 19:03 - CONCLUSION: Soft tissue swelling and joint effusion. Ho Najera MD Hip and Pelvis X-Ray 05/29/17 Signed Impressions: Service Date/Time: Monday, May 29, 2017 08:46 - CONCLUSION: Significant degenerative changes, no fracture. Mitchell Sanchez MD FACR Cervical Spine CT 05/29/17 Signed Impressions: Service Date/Time: Monday, May 29, 2017 09:06 - CONCLUSION: 1. Mild degenerative changes as described above. There is no evidence of acute fracture. Murali Jones MD Physical Exam CONSTITUTIONAL/GENERAL: This is an adequately nourished patient, in no apparent distress. TUBES/LINES/DRAINS: SKIN: No jaundice, rashes, or lesions. Skin temperature appropriate. Not diaphoretic. MUSCULOSKELETAL: Extremities without clubbing, cyanosis, or edema. R forearm with 2 small incisions, packed + moderate purulence present on proximal wound packing No surrounding erythema or edema 'no ascending cellulitis or lymphangitis Assessment & Plan Remarks Abscess right wrist and forearm, MRSA, Kleb pneumo sp Incision and drainage, abscess right wrist. sp Incision and drainage abscess right forearm, deep. dc vanco and CFTX change pt to po abx: Am/clav and doxycyline x 7 days Marti Torres MD Jun 07, 2017 15:11
[2017-06-07] MEDS ORDERED: DOXY100C PO (15:12)
[2017-06-07] MEDS ORDERED: AUGM875T3 PO (15:12)
[2017-06-07] MEDS: LORazepam 1 MG TAB PO PRN (21:19)
[2017-06-07] MEDS: cefTRIAXone INJ 2,000 MG in SODIUM CHLORIDE 0.9% INJ 100 ML IV SCH (22:32)
[2017-06-08] VITALS (8 sets, daily range): BP systolic 107–139; BP diastolic 56–72; PULSE 74–93; RESP 17–20; TEMP 97.1–99.3; O2SAT 93–99
[2017-06-08] MEDS: VANCOMYCIN INJ 1,500 MG in SODIUM CHLORID 0.9% 500 ML INJ 500 ML IV SCH (00:49)
[2017-06-08] MEDS: LACTATED RINGER'S 1000 ML INJ 1,000 ML IV SCH (00:49)
[2017-06-08] MEDS: HYDROmorphone HCL 2 MG TAB PO PRN ×6 (01:31→15:04)
[2017-06-08] MEDS: RESP: ALBUTEROL 2.5 MG/IPRATROPIUM 0.5 MG NEB (SCH) NEB ×4 (04:21→19:53)
[2017-06-08] MEDS: LORazepam 1 MG TAB PO PRN (06:36)
[2017-06-08] MEDS: PANTOPRAZOLE SOD 40 MG DELAYED RELEASE TAB PO SCH ×2 (08:53→21:07)
[2017-06-08] MEDS: oxyCODONE HCL 40 MG CONTROLLED RELEASE TAB PO SCH (08:54)
[2017-06-08] MEDS: PREGABALIN 100 MG CAP PO SCH ×2 (08:54→21:08)
[2017-06-08] MEDS: LIDOCAINE HCL 5% PATCH T-DERMAL SCH (08:55)
[2017-06-08] MEDS: LACTULOSE SYRUP 20 GM/30 ML CUP PO SCH (08:57)
[2017-06-08] MEDS: DOCUSATE SODIUM 50 MG/SENNA 8.6 MG TAB PO SCH ×2 (08:58→21:00)
[2017-06-08] MEDS: ENOXAPARIN SODIUM 30 MG/0.3 ML SYRINGE SQ SCH ×2 (09:02→21:09)
[2017-06-08] MEDS: MORPHINE SULFATE 30 MG CONTROLLED RELEASE TAB PO SCH (21:08)
[2017-06-08] MEDS: SODIUM CHLORIDE 0.9% FLUSH 10 ML FLUSH IV FLUSH PRN (21:08)
[2017-06-08] MEDS: AMOXICILLIN/CLAVULANATE K 875 MG TAB PO SCH (21:15)
[2017-06-08] MEDS: DOXYCYCLINE HYCLATE 100 MG TAB PO SCH (21:16)
[2017-06-09] VITALS (7 sets, daily range): BP systolic 113–155; BP diastolic 54–74; PULSE 75–90; RESP 17–20; TEMP 97.3–98; O2SAT 91–96
[2017-06-09] MEDS ORDERED: PHARMACY ORDERED LAB ONE (00:45)
[2017-06-09] MEDS: RESP: ALBUTEROL 2.5 MG/IPRATROPIUM 0.5 MG NEB (SCH) NEB ×4 (04:09→19:44)
[2017-06-09] MEDS: LACTULOSE SYRUP 20 GM/30 ML CUP PO SCH (09:19)
[2017-06-09] MEDS: AMOXICILLIN/CLAVULANATE K 875 MG TAB PO SCH ×2 (09:19→20:34)
[2017-06-09] MEDS: PREGABALIN 100 MG CAP PO SCH ×2 (09:20→20:35)
[2017-06-09] MEDS: DOXYCYCLINE HYCLATE 100 MG TAB PO SCH ×2 (09:20→20:35)
[2017-06-09] MEDS: PANTOPRAZOLE SOD 40 MG DELAYED RELEASE TAB PO SCH ×2 (09:20→20:35)
[2017-06-09] MEDS: ENOXAPARIN SODIUM 30 MG/0.3 ML SYRINGE SQ SCH ×2 (09:20→20:35)
[2017-06-09] MEDS: MORPHINE SULFATE 30 MG CONTROLLED RELEASE TAB PO SCH ×2 (09:21→20:35)
[2017-06-09] MEDS: DOCUSATE SODIUM 50 MG/SENNA 8.6 MG TAB PO SCH ×2 (09:22→20:38)
[2017-06-09] MEDS: LIDOCAINE HCL 5% PATCH T-DERMAL SCH (09:23)
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
[2017-06-10] VITALS (8 sets, daily range): BP systolic 114–146; BP diastolic 56–69; PULSE 75–89; RESP 17–21; TEMP 97.3–98; O2SAT 92–97
[2017-06-10] MEDS: RESP: ALBUTEROL 2.5 MG/IPRATROPIUM 0.5 MG NEB (SCH) NEB (03:12)
[2017-06-10] MEDS: AMOXICILLIN/CLAVULANATE K 875 MG TAB PO SCH ×2 (10:03→20:36)
[2017-06-10] MEDS: MORPHINE SULFATE 30 MG CONTROLLED RELEASE TAB PO SCH ×2 (10:03→20:37)
[2017-06-10] MEDS: PANTOPRAZOLE SOD 40 MG DELAYED RELEASE TAB PO SCH ×2 (10:03→20:36)
[2017-06-10] MEDS: LIDOCAINE HCL 5% PATCH T-DERMAL SCH (10:04)
[2017-06-10] MEDS: DOXYCYCLINE HYCLATE 100 MG TAB PO SCH ×2 (10:04→20:36)
[2017-06-10] MEDS: ENOXAPARIN SODIUM 30 MG/0.3 ML SYRINGE SQ SCH ×2 (10:04→20:36)
[2017-06-10] MEDS: LACTULOSE SYRUP 20 GM/30 ML CUP PO SCH (10:05)
[2017-06-10] MEDS: PREGABALIN 100 MG CAP PO SCH ×2 (10:05→20:36)
[2017-06-10] MEDS: DOCUSATE SODIUM 50 MG/SENNA 8.6 MG TAB PO SCH ×2 (10:06→20:36)
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
[2017-06-10] MEDS ORDERED: MAGNESIUM CITRATE SOLN 300 ML BTL PO ONE (14:30)
[2017-06-11 00:45] VITALS: BP 124/58; PULSE 81; RESP 18; TEMP 97.3; O2SAT 92
[2017-06-11 05:55] VITALS: BP 124/60; PULSE 73; RESP 18; TEMP 97.6; O2SAT 94
[2017-06-11 08:08] VITALS: BP 120/64; PULSE 73; RESP 18; TEMP 98.3; O2SAT 93
[2017-06-11] MEDS: DOXYCYCLINE HYCLATE 100 MG TAB PO SCH ×2 (08:41→22:13)
[2017-06-11] MEDS: AMOXICILLIN/CLAVULANATE K 875 MG TAB PO SCH ×2 (08:41→22:13)
[2017-06-11] MEDS: PREGABALIN 100 MG CAP PO SCH ×2 (08:41→21:02)
[2017-06-11] MEDS: PANTOPRAZOLE SOD 40 MG DELAYED RELEASE TAB PO SCH ×2 (08:41→21:03)
[2017-06-11] MEDS: ENOXAPARIN SODIUM 30 MG/0.3 ML SYRINGE SQ SCH ×2 (08:42→21:05)
[2017-06-11] MEDS: MORPHINE SULFATE 30 MG CONTROLLED RELEASE TAB PO SCH ×2 (08:42→22:13)
[2017-06-11] MEDS: LIDOCAINE HCL 5% PATCH T-DERMAL SCH (08:42)
[2017-06-11] MEDS: DOCUSATE SODIUM 50 MG/SENNA 8.6 MG TAB PO SCH ×2 (08:43→21:03)
[2017-06-11] MEDS: LACTULOSE SYRUP 20 GM/30 ML CUP PO SCH (08:43)
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
[2017-06-11 12:14] VITALS: BP 123/61; PULSE 73; RESP 18; TEMP 96.6; O2SAT 94
[2017-06-11 16:00] VITALS: BP 128/87; PULSE 79; RESP 18; TEMP 96.9; O2SAT 98
[2017-06-11 20:55] VITALS: BP 116/61; PULSE 77; RESP 18; TEMP 97.6; O2SAT 94
[2017-06-12] VITALS (7 sets, daily range): BP systolic 97–140; BP diastolic 55–65; PULSE 67–90; RESP 18–19; TEMP 97.6–98.4; O2SAT 90–98
[2017-06-12] MEDS: LACTULOSE SYRUP 20 GM/30 ML CUP PO SCH (09:00)
[2017-06-12] MEDS: PREGABALIN 100 MG CAP PO SCH ×2 (09:44→20:58)
[2017-06-12] MEDS: DOXYCYCLINE HYCLATE 100 MG TAB PO SCH ×2 (09:44→20:58)
[2017-06-12] MEDS: PANTOPRAZOLE SOD 40 MG DELAYED RELEASE TAB PO SCH ×2 (09:44→20:58)
[2017-06-12] MEDS: DOCUSATE SODIUM 50 MG/SENNA 8.6 MG TAB PO SCH ×2 (09:44→20:58)
[2017-06-12] MEDS: AMOXICILLIN/CLAVULANATE K 875 MG TAB PO SCH ×2 (09:44→20:58)
[2017-06-12] MEDS: MORPHINE SULFATE 30 MG CONTROLLED RELEASE TAB PO SCH ×2 (09:44→22:33)
[2017-06-12] MEDS: ENOXAPARIN SODIUM 30 MG/0.3 ML SYRINGE SQ SCH ×2 (09:45→20:58)
[2017-06-12] MEDS: LIDOCAINE HCL 5% PATCH T-DERMAL SCH (09:45)
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
--- NOTE | 2017-06-12 14:09 | RADRPT ---
EXAM DATE/TIME: 06/12/2017 13:13 [facility] COMPARISON: No previous studies available for comparison. INDICATIONS : Bilateral leg edema. MEDICAL HISTORY : Arthritis. Gastroesophageal reflux disease. Endocarditis. Dyspnea. Measles. MRSA. Substance use. SURGICAL HISTORY : Appendectomy. Right inguinal hernia repair. ENCOUNTER: Initial ACUITY: 1 day PAIN SCORE: 8/10 LOCATION: Bilateral leg. TECHNIQUE: Venous ultrasound of the left and right leg was performed from the inguinal ligament to the proximal calf. Real-time, color Doppler and spectral tracing, compression and augmentation techniques were us ed. FINDINGS: RIGHT LEG: There is normal compressibility of the deep venous system from the inguinal region to the proximal ca lf. No echogenic clot is seen in the lumen of the common femoral, femoral, popliteal, and posterior tibial veins. There is a normal response of the venous system to proximal and distal augmentation an d respiration. LEFT LEG: There is normal compressibility of the deep venous system from the inguinal region to the proximal ca lf. No echogenic clot is seen in the lumen of the common femoral, femoral, popliteal, and posterior tibial veins. There is a normal response of the venous system to proximal and distal augmentation an d respiration. CONCLUSION: No DVT is identified within either lower extremity. Michael Barcenas MD on June 12, 2017 at 14:05 Board Certified Radiologist. This report was verified electronically.
[2017-06-13 01:02] VITALS: BP 115/55; PULSE 69; RESP 18; TEMP 98.2; O2SAT 95
[2017-06-13 03:56] LABS: AUTOMATED NEUTROPHIL # 4.5 TH/MM3 (1.8-7.7); BASOPHIL # 0.1 TH/MM3 (0-0.2); EOSINOPHIL # 0.2 TH/MM3 (0-0.4); EOSINOPHIL % 2.8 % (0.0-4.0); HEMATOCRIT 26.5 % (39.0-51.0); HEMOGLOBIN 8.9 GM/DL (13.0-17.0); LYMPH % 26.4 % (9.0-44.0); LYMPHOCYTE # 2.1 TH/MM3 (1.0-4.8); MEAN CELL VOLUME 83.9 FL (80.0-100.0); MEAN CORPUSCULAR HEMOGLOBIN 28.2 PG (27.0-34.0); MEAN CORPUSCULAR HGB CONC 33.7 % (32.0-36.0); MEAN PLATELET VOLUME 8.8 FL (7.0-11.0); MONOCYTE # 0.9 TH/MM3 (0-0.9); NEUT % 57.8 % (16.0-70.0); PLATELET COUNT 349 TH/MM3 (150-450); RED BLOOD COUNT 3.16 MIL/MM3 (4.50-5.90); RED CELL DISTRIBUTION WIDTH 17.1 % (11.6-17.2); WHITE BLOOD COUNT 7.9 TH/MM3 (4.0-11.0)
[2017-06-13 04:00] VITALS: BP 114/57; PULSE 65; RESP 18; TEMP 98.1; O2SAT 95
[2017-06-13 04:28] LABS: ALBUMIN 2.2 GM/DL (3.4-5.0); AST (GOT) 57 U/L (15-37); BICARBONATE 28.3 MEQ/L (21.0-32.0); BLOOD UREA NITROGEN 22 MG/DL (7-18); CHLORIDE 103 MEQ/L (98-107); CREATININE 1.13 MG/DL (0.60-1.30); GLOMERULAR FILTRATION RATE 67 ML/MIN (>89); GLUCOSE,RANDOM 87 MG/DL (74-106); SODIUM (NA) 137 MEQ/L (136-145)
[2017-06-13 04:31] LABS: ALKALINE PHOSPHATASE 174 U/L (45-117); ALT (GPT) 43 U/L (12-78); TOTAL BILIRUBIN ADULT 0.8 MG/DL (0.2-1.0)
[2017-06-13 06:51] LABS: OVALOCYTES 1+ (NORMAL)
[2017-06-13] MEDS ORDERED: PERI PO (07:47)
--- NOTE | 2017-06-13 07:49 | RADRPT ---
EXAM DATE/TIME: 06/13/2017 06:42 [facility] COMPARISON: CT THORAX W CONTRAST, May 29, 2017, 9:12. INDICATIONS : Left side chest and rib pain MEDICAL HISTORY : rib fractures, endocarditis SURGICAL HISTORY : None. ENCOUNTER: Subsequent ACUITY: 1 week PAIN SCORE: 8/10 LOCATION: Bilateral chest FINDINGS: There is cardiomegaly. Right lung is clear. Left sided rib fractures are again noted. There is pleura l-based opacity overlying the left mid to lower lung zone which is decreased in prominence of the pre vious study, and incompletely evaluated on this study. CONCLUSION: Decrease in left pleural based opacity left mid to lower lungs. A CT chest may be helpful for further evaluation of this abnormal finding. Srinivas Walden MD on June 13, 2017 at 7:47 Board Certified Radiologist. This report was verified electronically.
[2017-06-13 08:00] VITALS: BP 113/57; PULSE 73; RESP 18; TEMP 98.1; O2SAT 95
[2017-06-13] MEDS: DOCUSATE SODIUM 50 MG/SENNA 8.6 MG TAB PO SCH ×2 (09:00→21:00)
[2017-06-13] MEDS: LACTULOSE SYRUP 20 GM/30 ML CUP PO SCH (09:00)
[2017-06-13] MEDS: MORPHINE SULFATE 30 MG CONTROLLED RELEASE TAB PO SCH ×2 (10:10→21:37)
[2017-06-13] MEDS: ENOXAPARIN SODIUM 30 MG/0.3 ML SYRINGE SQ SCH ×2 (10:10→21:36)
[2017-06-13] MEDS: PREGABALIN 100 MG CAP PO SCH ×2 (10:11→21:37)
[2017-06-13] MEDS: DOXYCYCLINE HYCLATE 100 MG TAB PO SCH ×2 (10:11→21:37)
[2017-06-13] MEDS: PANTOPRAZOLE SOD 40 MG DELAYED RELEASE TAB PO SCH ×2 (10:11→21:36)
[2017-06-13] MEDS: AMOXICILLIN/CLAVULANATE K 875 MG TAB PO SCH ×2 (10:11→21:36)
[2017-06-13] MEDS: LIDOCAINE HCL 5% PATCH T-DERMAL SCH (10:13)
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
[2017-06-13 12:00] VITALS: BP 96/55; PULSE 73; RESP 18; TEMP 98.6; O2SAT 95
[2017-06-13 16:00] VITALS: BP 118/58; PULSE 78; RESP 18; TEMP 98; O2SAT 97
[2017-06-13 20:00] VITALS: BP 89/50; PULSE 66; RESP 18; TEMP 97; O2SAT 95
[2017-06-14] VITALS: BP 109/60; PULSE 67; RESP 20; TEMP 97.2; O2SAT 97
[2017-06-14 04:36] VITALS: BP 113/62; PULSE 62; RESP 20; TEMP 97.8; O2SAT 95
[2017-06-14] MEDS ORDERED: BISACODYL 10 MG SUPP RECTAL ONE (07:30)
[2017-06-14] MEDS ORDERED: BISACODYL EC 5 MG TABEC PO ONE (07:30)
[2017-06-14 08:00] VITALS: BP 112/59; PULSE 63; RESP 18; TEMP 98.2; O2SAT 96
[2017-06-14] MEDS: AMOXICILLIN/CLAVULANATE K 875 MG TAB PO SCH (08:44)
[2017-06-14] MEDS: LACTULOSE SYRUP 20 GM/30 ML CUP PO SCH (08:46)
[2017-06-14] MEDS: PANTOPRAZOLE SOD 40 MG DELAYED RELEASE TAB PO SCH (08:47)
[2017-06-14] MEDS: PREGABALIN 100 MG CAP PO SCH (08:47)
[2017-06-14] MEDS: DOXYCYCLINE HYCLATE 100 MG TAB PO SCH (08:48)
[2017-06-14] MEDS: LIDOCAINE HCL 5% PATCH T-DERMAL SCH (08:49)
[2017-06-14] MEDS: DOCUSATE SODIUM 50 MG/SENNA 8.6 MG TAB PO SCH (08:54)
[2017-06-14] MEDS: MORPHINE SULFATE 30 MG CONTROLLED RELEASE TAB PO SCH (08:55)
[2017-06-14] MEDS: ENOXAPARIN SODIUM 30 MG/0.3 ML SYRINGE SQ SCH (08:57)
[2017-06-14] MEDS: SODIUM CHLORIDE 0.9% FLUSH 10 ML FLUSH IV FLUSH PRN (09:03)
[2017-06-14] MEDS ORDERED: WHEEMIS3 (11:31)
[2017-06-14] MEDS ORDERED: WALKER WHEELS/F1 MIS (11:31)
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
== END 2017-06-14 12:47 | disposition home health service (06) | DRG 184 ==
LOC: NEPI 08:44 → NEDA 10:42 → EDBD 10:42 → N03B 14:02 → N05B 05-31 20:36
PROVIDERS: ADMIT Surgery; ATTEND Surgery
PROC: 0HQ0XZZ Repair Scalp Skin, External Approach (ICD-10-PCS; principal; 2017-05-29)
PROC: 0H9DXZX Drainage of Right Lower Arm Skin, External Approach, Diagnostic (ICD-10-PCS; 2017-06-12)
DX: S22.42XA Multiple fractures of ribs, left side, initial encounter for closed fracture (principal); S27.321A Contusion of lung, unilateral, initial encounter; I31.3 Pericardial effusion (noninflammatory); I95.9 Hypotension, unspecified; D62 Acute posthemorrhagic anemia; L02.413 Cutaneous abscess of right upper limb; L03.113 Cellulitis of right upper limb; K21.9 Gastro-esophageal reflux disease without esophagitis; S02.2XXA Fracture of nasal bones, initial encounter for closed fracture; S01.01XA Laceration without foreign body of scalp, initial encounter; Y92.410 Unspecified street and highway as the place of occurrence of the external cause; V49.49XA Driver injured in collision with other motor vehicles in traffic accident, initial encounter; Y93.89 Activity, other specified; F11.10 Opioid abuse, uncomplicated; Z79.891 Long term (current) use of opiate analgesic; M25.551 Pain in right hip; G89.4 Chronic pain syndrome; M25.562 Pain in left knee; S52.611D Displaced fracture of right ulna styloid process, subsequent encounter for closed fracture with routine healing; B95.62 Methicillin resistant Staphylococcus aureus infection as the cause of diseases classified elsewhere; B96.1 Klebsiella pneumoniae [K. pneumoniae] as the cause of diseases classified elsewhere
CPT/HCPCS: 12002; 36430; 70450; 70486; 71045; 71260; 72125; 72129; 73110; 73130; 73501; 73564; 74177; 76937; 80048; 80053; 80202; 80307; 82435; 82533; 82565; 82947; 84132; 84155; 84295; 84520; 85007; 85014; 85018; 85025; 85027; 85610; 85652; 85730; 86140; 86403; 86850; 86900; 86901; 86920; 87015; 87070; 87077; 87102; 87116; 87147; 87186; 87205; 87206; 87641; 90471; 90715; 93306; 93970; 94150; 94640; 94664; 94667; 94668; 96374; 99291; C9113; G0390; J0690; J0696; J1170; J1650; J1885; J1940; J2250; J2370; J2405; J2543; J3010; J3370; J7030; J7040; J7050; J7060; J7120; J7613; P9016; Q9967